=== PATIENT | male | born 1955 | race Caucasian/White ===

== ENCOUNTER → 2024-12-30 07:27 | Outpatient (REF) | payer BC, SELFPAY | LOC: RAD 07:27 | PROVIDERS: ATTENDING PHYSICIAN Student in an Organized Health Care Education/Training Program; FAMILY PHYSICIAN Family Medicine | DX: R17 Unspecified jaundice (principal) | CPT/HCPCS: 76700 ==

== ENCOUNTER 2025-01-20 06:25 | Day surgery (SDC) | payer BC, SELFPAY | END 2025-01-20 11:53 | disposition home or self-care (01) | LOC: GI 06:25 | PROVIDERS: ATTENDING PHYSICIAN Student in an Organized Health Care Education/Training Program | DX: Z12.11 Encounter for screening for malignant neoplasm of colon (principal); K57.30 Diverticulosis of large intestine without perforation or abscess without bleeding; K62.89 Other specified diseases of anus and rectum; K63.89 Other specified diseases of intestine | CPT/HCPCS: 45380; 88305 ==

== ENCOUNTER → 2025-02-22 11:01 | Outpatient (REF) | payer BC, SELFPAY | LOC: PAVMRI 11:01 | PROVIDERS: ATTENDING PHYSICIAN Student in an Organized Health Care Education/Training Program; FAMILY PHYSICIAN Family Medicine | DX: R93.5 Abnormal findings on diagnostic imaging of other abdominal regions, including retroperitoneum (principal); K86.9 Disease of pancreas, unspecified | CPT/HCPCS: 74183; A9575 ==